=== PATIENT | female | born 1985 | race Caucasian/White ===

== ENCOUNTER 2016-03-05 03:53 | Emergency (ER) | payer BC ==
--- NOTE | 2016-03-05 04:47 | ER Document Report ---
ED Headache - General Mode of Arrival: Ambulatory Information source: Patient TRAVEL OUTSIDE OF THE [place] IN LAST 30 DAYS: No <KARI RODRIGUES - Last Filed: 03/05/16 07:41> <JANELCARLASHELLEY - Last Filed: 03/05/16 08:23> - General Chief Complaint: Headache >24 hrs old Stated Complaint: HEADACHE Notes: Patient is a 31-year-old female who presents to the ER today post vaginal delivery with an epidural 3 nights ago at approximately 7:30 PM. Patient states that since that time she has had an excruciating headache in the front and back of her head, neck and in her low back. She states that sitting up makes it worse and laying down makes it better. She states that she is really just been laying around because of a headache and cannot seem to get up and move around, take care of her children because of it. She denies any history of migraines. She is not breast-feeding. She denies any fever, chills. (KARI RODRIGUES) - Related Data Allergies/Adverse Reactions: No Known Allergies Allergy (Verified 03/05/16 05:24) Past Medical History - General Information source: Patient - Social History Smoking Status: Never Smoker Chew tobacco use (# tins/day): No Frequency of alcohol use: None Drug Abuse: None Family History: Reviewed & Not Pertinent Patient has suicidal ideation: No Patient has homicidal ideation: No Pulmonary Medical History: Reports: Hx Asthma Neurological Medical History: Denies: Hx Migraine Endocrine Medical History: Denies: Hx Diabetes Mellitus Type 1, Hx Diabetes Mellitus Type 2 Renal/ Medical History: Denies: Hx Peritoneal Dialysis - Immunizations Hx Diphtheria, Pertussis, Tetanus Vaccination: Yes <KARI RODRIGUES - Last Filed: 03/05/16 07:41> Review of Systems - Review of Systems Constitutional: No symptoms reported EENT: No symptoms reported Cardiovascular: No symptoms reported Respiratory: No symptoms reported Gastrointestinal: No symptoms reported Genitourinary: No symptoms reported Female Genitourinary: No symptoms reported Musculoskeletal: See HPI Skin: No symptoms reported Hematologic/Lymphatic: No symptoms reported Neurological/Psychological: See HPI <KARI RODRIGUES - Last Filed: 03/05/16 07:41> Physical Exam <KARI RODRIGUES - Last Filed: 03/05/16 07:41> <SHELLEY KELSEY - Last Filed: 03/05/16 08:23> - Vital signs Vitals: Temp Pulse Resp BP Pulse Ox 97.7 F 67 16 121/73 98 03/05/16 04:00 03/05/16 04:00 03/05/16 04:00 03/05/16 04:00 03/05/16 04:00 (KARI RODRIGUES) (SHELLEY KELSEY) - Notes Notes: PHYSICAL EXAMINATION: GENERAL: appears uncomfortable, but in no acute distress. HEAD: Atraumatic, normocephalic. EYES: Pupils equal round and reactive to light, extraocular movements intact, sclera anicteric, conjunctiva are normal. NECK: Normal range of motion, supple without lymphadenopathy LUNGS: CTAB and equal. No wheezes rales or rhonchi. HEART: Regular rate and rhythm without murmurs ABDOMEN: Soft, no tenderness. No guarding, no rebound BACK: no vertebral tenderness, normal ROM GI/: no CVA tenderness EXTREMITIES: Normal range of motion, no pitting edema. No cyanosis. NEUROLOGICAL: Cranial nerves grossly intact. Normal sensory/motor exams. PSYCH: Normal mood, normal affect. SKIN: Warm, Dry, normal turgor, no rashes or lesions noted (KARI RODRIGUES) Course - Laboratory Result Diagrams: 03/05/16 05:00 03/05/16 05:00 <KARI RODRIGUES - Last Filed: 03/05/16 07:41> - Laboratory Result Diagrams: 03/05/16 05:00 03/05/16 05:00 <SHELLEY KELSEY - Last Filed: 03/05/16 08:23> - Re-evaluation Re-evalutation: 03/05/16 07:52 Pt's WBC is 13.5, she received IV fluids, Toradol, Benadryl, subcutaneous sumatriptan and none of these helped with her headache. At this time anesthesiologist was called and evaluated patient, will do blood patch at bedside. (KARI RODRIGUES) 03/05/16 08:23 pt headache after blood patch 2/2 when stands, feels so much better. vitals stable, 2nd liter NS hung. Pt discharged. (SHELLEY KELSEY) - Vital Signs Vital signs: Temp Pulse Resp BP Pulse Ox 97.9 F 88 16 128/79 H 98 03/05/16 07:12 03/05/16 08:17 03/05/16 08:17 03/05/16 08:17 03/05/16 08:17 (KARI RODRIGUES) (SHELLEY KELSEY) - Laboratory Laboratory results interpreted by me: 03/05/16 03/05/16 03/05/16 05:00 05:00 05:00 WBC 13.5 H Hgb 11.5 L MCH 25.4 L MCHC 30.6 L RDW 15.1 H Seg Neutrophils % 86.3 H Lymphocytes % 9.3 L Absolute Neutrophils 11.6 H Alkaline Phosphatase 147 H Albumin 3.3 L Urine Protein 100 H Urine Blood MODERATE H Ur Leukocyte Esterase MODERATE H (SHELLEY KELSEY) Discharge <KARI RODRIGUES - Last Filed: 03/05/16 07:41> <SHELLEY KLESEY - Last Filed: 03/05/16 08:23> - Discharge Clinical Impression: Epidural anesthesia-induced headache during puerperium Condition: Stable Disposition: HOME, SELF-CARE Instructions: Post-Spinal Headache ([facility]) Additional Instructions: Return immediately for any new or worsening symptoms. Follow up with PECAN HULLER, call tomorrow to make followup appointment.
[2016-03-05] MEDS ORDERED: DIPHENHYDRAMINE HCL 50 MG/ML VIAL IV ONE (04:48)
[2016-03-05] MEDS ORDERED: KETOROLAC TROMETHAMINE INJ/PF 30 MG/1 ML SDV IV ONE (04:48)
[2016-03-05] MEDS ORDERED: NORMAL SALINE 1000 ML 1,000 ML IV ONE ×2 (04:48→07:32)
[2016-03-05] MEDS ORDERED: SUMATRIPTAN SUCCINATE INJ/PF 6 MG/0.5 ML SDV SUBCUT ONE (05:17)
[2016-03-05 05:24] LABS: ABSOLUTE EOSINOPHILS # (AUTO) 0.1 10^3/uL (0.0-0.6); ABSOLUTE LYMPHOCYTES (AUTO) 1.3 10^3/uL (0.5-4.7); ABSOLUTE MONOCYTES (AUTO) 0.5 10^3/uL (0.1-1.4); ABSOLUTE NEUT (AUTO) 11.6 10^3/uL (1.7-8.2); BASOPHILS % (AUTO) 0.2 % (0-2); EOSINOPHILS % (AUTO) 0.5 % (0-6); HEMATOCRIT 37.6 % (36.0-47.0); HEMOGLOBIN 11.5 g/dL (12.0-15.5); HGB HCT DIFFERENCE -3.1; LYMPHOCYTES % (AUTO) 9.3 % (13-45); MEAN CORPUSCULAR HEMOGLOBIN 25.4 pg (27.0-33.4); MEAN CORPUSCULAR HGB CONC 30.6 g/dL (32.0-36.0); MEAN CORPUSCULAR VOLUME 83 fl (80-97); MONOCYTES % (AUTO) 3.7 % (3-13); RED BLOOD COUNT 4.53 10^6/uL (3.72-5.28); RED CELL DISTRIBUTION WIDTH 15.1 % (11.5-14.0); SEGMENTED NEUTROPHILS % (AUTO) 86.3 % (42-78); WHITE BLOOD COUNT 13.5 10^3/uL (4.0-10.5)
[2016-03-05 05:48] LABS: BLOOD UREA NITROGEN 11 mg/dL (7-20); CALCIUM 9.6 mg/dL (8.4-10.2); CREATININE RESULT 0.64 mg/dL (0.52-1.25); GLUCOSE 83 mg/dL (75-110); POTASSIUM 3.8 mmol/L (3.6-5.0)
[2016-03-05 05:49] LABS: ALANINE AMINOTRANSFERASE 42 U/L (9-52); ALBUMIN 3.3 g/dL (3.5-5.0); ALKALINE PHOSPHATASE 147 U/L (38-126); ANION GAP 9 (5-19); ASPARTATE AMINO TRANSFERASE 28 U/L (14-36); BILIRUBIN,TOTAL 0.4 mg/dL (0.2-1.3); CARBON DIOXIDE 28 mmol/L (22-30); CHLORIDE 103 mmol/L (98-107); SODIUM 140.1 mmol/L (137-145); TOTAL PROTEIN 6.7 g/dL (6.3-8.2)
[2016-03-05 06:07] LABS: AMORPHOUS SEDIMENT,URINE TRACE /HPF; APPEARANCE,URINE CLOUDY; BILIRUBIN,URINE NEGATIVE (NEGATIVE); GLUCOSE, URINE NEGATIVE (NEGATIVE); KETONES,URINE NEGATIVE (NEGATIVE); LEUKOCYTE ESTERASE,URINE MODERATE (NEGATIVE); NITRITE,URINE NEGATIVE (NEGATIVE); PROTEIN,URINE 100 mg/dL (NEGATIVE); UROBILINOGEN,URINE NEGATIVE mg/dL (<2.0)
[2016-03-05 08:37] VITALS: BP 116/70
== END 2016-03-05 08:40 | disposition home or self-care (01) ==
LOC: ER 03:53
DX: O89.4 Spinal and epidural anesthesia-induced headache during the puerperium (principal); R51 Headache; M54.2 Cervicalgia; M54.5 Low back pain
CPT/HCPCS: 99284; 96361; 62273; 96374; 96375; 36415; 85025; 80053; 81001; J1200; J1885; J3030; J7030